=== PATIENT | male | born 1985 | race Caucasian/White ===

== ENCOUNTER 2018-04-09 16:54 | Emergency (ER) | payer OTHER ==
[2018-04-09 17:00] VITALS: BP 157/78; PULSE 93; RESP 18; TEMP 99.1; O2SAT 97
--- NOTE | 2018-04-09 17:48 | CT ---
PROCEDURE: CT HEAD WITHOUT CONTRAST. HISTORY: r/o ICH COMPARISON: None available. TECHNIQUE: Axial computed tomography images were obtained through the head/brain without intravenous contrast. Radiation dose: Total exam DLP = 940.45 mGy-cm. This CT exam was performed using one or more of the following dose reduction techniques: Automated exposure control, adjustment of the mA and/or kV according to patient size, and/or use of iterative reconstruction technique. FINDINGS: HEMORRHAGE: No intracranial hemorrhage. BRAIN: Normal bermeo-white matter differentiation and density are appreciated throughout the cerebrum and cerebellum with the brainstem appearing unremarkable as well. There is no mass effect. There is no suspicious extra-axial fluid collection and the midline brain anatomy appears diffusely unremarkable. VENTRICLES: Unremarkable. No hydrocephalus. CALVARIUM: Unremarkable. PARANASAL SINUSES: Unremarkable as visualized. No significant inflammatory changes. MASTOID AIR CELLS: Unremarkable as visualized. No inflammatory changes. OTHER FINDINGS: None. IMPRESSION: Unremarkable noncontrast CT of the Head.
--- NOTE | 2018-04-09 18:08 | CT ---
PROCEDURE: CT Cervical Spine without contrast HISTORY: trauma r/o fx COMPARISON: None available. TECHNIQUE: Axial computed tomography images were obtained of the cervical spine without the use of intravenous contrast. Coronal and sagittal reformatted images were created and reviewed. Radiation dose: Total exam DLP = 685.02 mGy-cm. This CT exam was performed using one or more of the following dose reduction techniques: Automated exposure control, adjustment of the mA and/or kV according to patient size, and/or use of iterative reconstruction technique. FINDINGS: VERTEBRAE: No fracture. Normal alignment. No destructive bony lesion. DISCS/SPINAL CANAL/NEURAL FORAMINA: No significant central canal or neural foraminal stenosis. Discs heights are grossly preserved. PARASPINAL SOFT TISSUES: Unremarkable. OTHER FINDINGS: None. IMPRESSION: Unremarkable CT of the cervical spine.
[2018-04-09] MEDS ORDERED: Oxycodone/Acetaminophen 5/325 mg Tab PO STA (18:17)
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
[2018-04-09] MEDS ORDERED: Lidocaine 2% Inj (20ml) IJ ONE (18:35)
[2018-04-09] MEDS ORDERED: Lidocaine 1% Inj (20ml) ONE (18:42)
[2018-04-09] MEDS ORDERED: Oxycodone/Acetaminophen 5/325 mg Tab ONE (18:43)
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
--- NOTE | 2018-04-10 09:02 | RAD ---
PROCEDURE: Left Knee Radiographs. HISTORY: Pain. COMPARISON: None. FINDINGS: BONES: Normal. No fracture. JOINTS: Normal. No osteoarthritis. JOINT EFFUSION: None. OTHER FINDINGS: None. IMPRESSION: Normal radiographs of the left knee.
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
--- NOTE | 2018-04-10 09:03 | RAD ---
PROCEDURE: Right Foot Radiographs. HISTORY: Post reduction COMPARISON: April 09, 2018. 80 17:50 FINDINGS: BONES: Anatomic alignment returned at the 1st metatarsophalangeal junction. JOINTS: Normal. SOFT TISSUES: Soft tissue swelling more prominent. OTHER FINDINGS: None. IMPRESSION: Is successful reduction 1st metatarsal phalangeal junction dislocation. No identifiable fracture.
== END 2018-04-09 17:12 | disposition home or self-care (01) ==
LOC: H.ER 16:54
DX: S09.90XA Unspecified injury of head, initial encounter (principal); S93.111A Dislocation of interphalangeal joint of right great toe, initial encounter; S99.921A Unspecified injury of right foot, initial encounter; V43.52XA Car driver injured in collision with other type car in traffic accident, initial encounter; Y92.410 Unspecified street and highway as the place of occurrence of the external cause; Y99.0 Civilian activity done for income or pay; Z88.0 Allergy status to penicillin
CPT/HCPCS: 28515; 70450; 72114; 72125; 73562; 73610; 73630; 96372; 99283; J1885

== ENCOUNTER 2018-10-06 18:03 | Emergency (ER) | payer OTHER ==
[2018-10-06 18:07] VITALS: PULSE 98; RESP 16; TEMP 98.8; O2SAT 99
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
[2018-10-06 18:53] VITALS: BP 151/79
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
== END 2018-10-06 18:53 | disposition home or self-care (01) ==
LOC: H.ER 18:03
DX: S63.602A Unspecified sprain of left thumb, initial encounter (principal); I10 Essential (primary) hypertension; Z88.0 Allergy status to penicillin